=== PATIENT | male | born 1990 | race Caucasian/White ===

== ENCOUNTER 2017-05-08 22:05 | Emergency (ER) | payer SELFPAY ==
[2017-05-08 22:15] VITALS: BP 133/81; PULSE 58; TEMP 97.7; BMI 20.7
--- NOTE | 2017-05-08 22:17 | PDOC ---
History of Present Illness - General Chief Complaint: Pain, Acute Stated Complaint: RT SIDED PAIN Time Seen by Provider: 05/08/17 22:16 History Source: Patient Exam Limitations: No Limitations - History of Present Illness Initial Comments: 05/08/17 22:24 This is a 26-year-old male who comes in complaining of right back flank and lower chest pain. Patient denies any cough, congestion, fever, chills, shortness of breath. Patient is a smoker. Patient said that smoke a cigarette helps the pain. Patient said that he has not taken anything for the pain. Patient denies any urinary symptoms, hematuria or dysuria. Patient said that he had some fast food 2 days ago that seemed to make the pain worse. Patient denies any pain at this time. PAST MEDICAL HISTORY: no significant history PAST SURGICAL HISTORY: no significant history FAMILY HISTORY: no pertinant history SOCIAL HISTORY: Pt lives with family and is employed. MEDICATIONS: reviewed ALLERGIES: As per nursing notes Review of Systems General: No fevers or chills, no weakness, no weight loss HEENT: No change in vision. No sore throat,. No ear pain CardioVascular: No chest pain or shortness of breath Respiratory:No cough, or wheezing. Gastrointestinal: no nausea, vomitting, diarrhea or constipation, No rectal bleeding Genitourinary: No dysuria, hematuria, or frequency Musculoskeletal: No joint or muscle pain or swelling Neurologic: No headache, vertigo, dizziness or loss of consciousness Psychiatric: nor depression Skin: No rashes or easy bruising Endocrine: no increased thirst or abnormal weight change Allergic: no skin or latex allergy All other systems reviewed and normal Exam: General: Well-nourished well-developed individual, no acute distress HEENT: Throat: Normal, tonsils normal, no erythema or exudate Neck: Supple, no meningeal signs, no lymphadenopathy Eyes::Pupils equal reactive and round, extraocular motion intact Chest: Nontender to palpation , unable to reproduce pain on palpation of the anterior chest wall. Back: Unable to reproduce pain on palpation of the posterior chest wall, there is no CVA tenderness. There is no flank tenderness. Cardiac: S1-S2 normal, regular rate and rhythm, no murmurs rubs or gallops Respiratory: Lungs clear to auscultation bilateral Abdomen: Soft, nondistended, normal bowel sounds, nontender to palpation diffusely, specifically there is no tenderness on deep palpation of the right upper quadrant. Extremities: Warm, dry, no cyanosis, clubbing, or edema Skin: No rashes Neuro: Alert and oriented x3, nonfocal exam, grossly intact, normal gait Psych: Normal mood and affect Assessment and plan: This is a 26-year-old male who comes in complaining of right back flank and anterior lower chest wall pain. 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 Patient has not really taken anything for the pain so was given a shot of Toradol here and told to take Aleve at home. Patient does have a primary care doctor he can follow-up with if pain persists.. Patient discharged home. Past History - Past Medical History Allergies/Adverse Reactions: Allergies Allergy/AdvReac Type Severity Reaction Status Date / Time No Known Allergies Allergy Unverified 05/08/17 22:12 Home Medications: Ambulatory Orders NK [No Known Home Medication] 05/08/17 - Psycho/Social/Smoking Cessation Hx Suicidal Ideation: No Smoking History: Current every day smoker Number of Cigarettes Smoked Daily: 20 Information on smoking cessation initiated: Yes *Physical Exam - Vital Signs Last Vital Signs Temp Pulse Resp BP Pulse Ox 97.7 F 58 L 16 133/81 99 05/08/17 22:13 05/08/17 22:13 05/08/17 22:13 05/08/17 22:13 05/08/17 22:13 *DC/Admit/Observation/Transfer Diagnosis at time of Disposition: Upper back pain on right side, Anterior chest wall pain - Discharge Dispostion Disposition: HOME Condition at time of disposition: Stable Admit: No - Patient Instructions Additional Instructions: You were given Toradol here in the emergency room for the pain it should last throughout the night.. If pain returns that take ibuprofen or Aleve as directed on the bottle. Return to the emergency department immediately with ANY new, persistent or worsening symptoms. Continue any medications as previously prescribed by your physician. You should follow up with your primary doctor as soon as possible regarding today's emergency department visit. . Please make sure your doctor reviews the results of your emergency evaluation. Thank you for coming to the Emergency Department today for your care. It was a pleasure to see you today. Please note that your evaluation is INCOMPLETE until you follow-up with your doctor.
[2017-05-08] MEDS ORDERED: KETOROLAC TROMETHAMINE 60 MG/2 ML VIAL IM ONE (22:24)
[2017-05-08] MEDS ORDERED: KETOROLAC TROMETHAMINE 60 MG/2 ML VIAL ONE (22:42)
== END 2017-05-08 23:17 | disposition home or self-care (01) ==
LOC: FER 22:05
PROC: 3E0233Z Introduction of Anti-inflammatory into Muscle, Percutaneous Approach (ICD-10-PCS; principal; 2017-05-08)
DX: M54.9 Dorsalgia, unspecified (principal); R07.89 Other chest pain; F17.210 Nicotine dependence, cigarettes, uncomplicated
CPT/HCPCS: 99282-25